=== PATIENT | male | born 1970 | race Caucasian/White ===

== ENCOUNTER 2019-06-30 17:31 | Inpatient (IN) | payer OTHER ==
[~2019-06-30] VITALS: Ht 185.4 cm; Wt 87.5 kg
[~2019-06-30 17:31] MED LIST: AUGMENTIN 875875 MG PO; CELEXA 10 MG TA10 M1 PO; FLEXERIL PO; HUMIRA PSO40 MG/0.8 IM; HYDROCODON-ACE1 EACH PO; IBUPROFEN 800800 MG PO; LORAZEPAM 1 MG T1 M1 PO; PRINIVIL20 MG PO
[2019-06-30 17:36] VITALS: BP 152/111
[2019-06-30 18:06] LABS: ABSOLUTE BASOPHILS 0.1 thou/uL (0.0-0.2); ABSOLUTE LYMPHOCYTES 0.7 thou/uL (0.8-5.3); ABSOLUTE NEUTROPHILS 6.8 thou/uL (1.6-8.1); BASOPHILS 0.9 %; EOSINOPHILS 0.1 %; HEMATOCRIT 41.5 % (42.0-52.0); HEMOGLOBIN 14.6 gm/dL (14.0-18.0); MCH 35.8 pg (26.0-34.0); MCHC 35.2 g/dL (28.0-37.0); MCV 101.7 fL (80.0-100.0); MONOCYTES 11.5 %; MPV 10.1 fl. (7.2-11.1); NUCLEATED RBCS 0 /100WBC; PLATELET COUNT* 131 thou/uL (150-400); POLYS 79.5 %; RBC 4.08 mil/uL (4.50-6.00); RDW-CV 12.6 % (10.5-14.5); WBC 8.6 thou/uL (4.0-11.0)
[2019-06-30 18:14] LABS: CALCIUM 10.8 mg/dL (8.5-10.1); CREATININE 1.7 mg/dL (0.6-1.3); POTASSIUM 3.2 mmol/L (3.5-5.1)
[2019-06-30 18:23] LABS: ALCOHOL 26 mg/dL (<10)
[2019-06-30 18:25] LABS: ACETAMINOPHEN < 2 ug/mL (10-30); SALICYLATE < 2.8 mg/dL (2.8-20.0)
[2019-06-30 18:31] LABS: ALBUMIN 4.8 g/dL (3.4-5.0); TOTAL BILIRUBIN 1.6 mg/dL (<0.1-1.0); TOTAL PROTEIN 8.6 g/dL (6.4-8.2)
[2019-06-30 18:49] LABS: APTT 33.3 Seconds (25.0-31.3); INR 0.9; PROTIME 9.7 Seconds (9.20-11.50)
[2019-06-30 19:36] VITALS: BP 137/93
[2019-06-30 19:56] VITALS: BP 123/89
[2019-06-30 21:03] VITALS: BP 127/89
[2019-06-30 21:18] LABS: AMMONIA < 10 umol/L (11-32); MAGNESIUM 2.1 mg/dL (1.8-2.4); PHOSPHORUS* 3.2 mg/dL (2.5-4.9)
--- NOTE | 2019-06-30 22:42 | NUR ---
PT. BECAME EXTREMELY AGITATED/ANXIOUS/IMPULSIVE. CIWA 43. DR. VILA NOTIFIED, ORDERS RECEIVED. PT. PLACED IN 4 POINT SOFT RESTRAINTS DUE TO HITTING/PULLING ON LINES/AND ATTEMPTING TO GET OUT OF BED. ATTEMPTS TO REDIRECT AND REORIENT PT. UNSUCCESSFUL. PT. VERY CONFUSED/SEVERE HALLUCINATIONS. THIS NURSE ABLE TO KEEP EYES ON PT. AT ALL TIMES. WILL CONTINUE TO MONITOR.
[2019-06-30 23:20] VITALS: BP 127/78
[2019-06-30 23:32] VITALS: BP 141/105
[2019-07-01] VITALS (41 sets, daily range): BP systolic 90–157; BP diastolic 39–87
--- NOTE | 2019-07-01 00:01 | NUR ---
CARDIOLOGY PAGED X2 REGARDING EXTREME TACHYCARDIA. CARDIZEM GTT MAXED AT 20MG/HR. ATIVAN GTT AT 15MG/HR. HEART RATE REMAINS 150-200. AWAITING CALL BACK.
[2019-07-01 06:04] LABS: HEMATOCRIT 37.5 % (42.0-52.0); HEMOGLOBIN 12.8 gm/dL (14.0-18.0); MCH 35.4 pg (26.0-34.0); MCHC 34.2 g/dL (28.0-37.0); MCV 103.4 fL (80.0-100.0); MPV 10.5 fl. (7.2-11.1); RBC 3.62 mil/uL (4.50-6.00); RDW-CV 12.8 % (10.5-14.5); WBC 5.8 thou/uL (4.0-11.0)
[2019-07-01 06:17] LABS: ALBUMIN 3.2 g/dL (3.4-5.0); CREATININE 0.9 mg/dL (0.6-1.3); MAGNESIUM 2.1 mg/dL (1.8-2.4); POTASSIUM 3.5 mmol/L (3.5-5.1); TOTAL BILIRUBIN 1.1 mg/dL (<0.1-1.0); TOTAL PROTEIN 6.3 g/dL (6.4-8.2)
[2019-07-01 08:38] LABS: AMMONIA 28 umol/L (11-32); TROPONIN-I LEVEL <0.06 ng/mL (<0.06)
[2019-07-01 09:23] LABS: BE 1.5 mmol/L (-2 to +3); PCO2 42.1 mmHg (35.0-45.0); PO2 102.6 mmHg (75.0-100.0); pH 7.413 (7.340-7.450)
--- NOTE | 2019-07-01 10:54 | NUR ---
SPOKE WITH PT AT BEDSIDE. THEY ARE SINCE SEP 2018, BUT NOT . STATES PATIENT RECOGNIZED HE WAS BEGINNING TO HALLUCINATE AND REQUESTED SHE ASSIST IN GETTING HIM SEEN. SHE IS EXPRESSING HOPEFULLY, PT WILL BE AMENABLE TO SUPPORT SERVICES FOR HIS ETOH ABUSE/DISEASE WHEN HE IMPROVES AND IS ABLE TO DISCUSS HIS PLAN FOR HIS CARE DECISIONS. SHE HAS NO QUESTIONS AT THIS TIME; STATES SHE PLANS TO SPEAK WITH HER THERAPIST LATER TODAY FOR HER SUPPORT IN NOT ENABLING THE PATIENT, WHILE WANTING TO SUPPORT HIM/ADVOCATE FOR HIM. NOTICABLY EMOTIONAL, AND KNOWLEDGEABLE. WILL REMAIN AVAILABLE TO ASSIST PT STABILIZES WITH ETOH WITHDRAWAL MANAGEMENT.
[2019-07-01 13:02] LABS: AMP/METHAMP ND (Negative); BARBITURATES ND (Negative); BENZODIAZEPINES ND (Negative); URINE CLARITY ND; URINE COLOR ND
[2019-07-01 13:03] LABS: COCAINE ND (Negative); METHADONE ND (Negative); URINE PROTEIN ND (Negative); URINE SPECIFIC GRAVITY ND (1.005-1.030)
[2019-07-01 13:04] LABS: ACETEST (KETONE CONFIRMATORY) ND (Negative); ICTOTEST (BILI CONFIRMATORY) ND (Negative); OPIATES ND (Negative); PCP ND (Negative); URINE BILIRUBIN ND (Negative); URINE GLUCOSE-RANDOM ND (Negative); URINE KETONES ND (Negative); URINE REDUCING SUBSTANCE ND % (Negative)
[2019-07-01 13:05] LABS: THC ND (Negative); URINE BLOOD ND (Negative); URINE LEUKOCYTES-REFLEX ND (Negative); URINE NITRITE-REFLEX ND (Negative); URINE UROBILINOGEN ND E.U./dl (0.2-1.0)
[2019-07-01 14:39] LABS: URINE BILIRUBIN NEGATIVE (Negative); URINE BLOOD 1+ (Negative); URINE CLARITY CLEAR; URINE COLOR YELLOW; URINE GLUCOSE-RANDOM NEGATIVE (Negative); URINE KETONES NEGATIVE (Negative); URINE LEUKOCYTES-REFLEX NEGATIVE (Negative); URINE NITRITE-REFLEX NEGATIVE (Negative); URINE PROTEIN NEGATIVE (Negative); URINE UROBILINOGEN 0.2 E.U./dl (0.2-1.0)
[2019-07-01 14:48] LABS: CASTS None Seen /LPF (None Seen); URINE RBC 0-2 Rare /HPF (0-2)
[2019-07-01 14:49] LABS: BACTERIA-REFLEX None Seen /HPF (None Seen); CRYSTALS None Seen /LPF (None Seen); MUCUS None Seen strn/LPF (None Seen); URINE WBC-REFLEX None Seen /HPF (0-5)
[2019-07-01 14:50] LABS: SQUAMOUS NONE SEEN /LPF (0-3)
[2019-07-01 16:49] LABS: AMP/METHAMP Negative (Negative); BARBITURATES Negative (Negative); BENZODIAZEPINES Negative (Negative); COCAINE Negative (Negative); METHADONE Negative (Negative); OPIATES Negative (Negative); PCP Negative (Negative); THC Negative (Negative)
--- NOTE | 2019-07-01 16:59 | 2DMMODE ---
[place] [address] 2 D/M-MODE ECHOCARDIOGRAM Name: CAL GUERIN Room: [address] IN [facility]#: [id number] Admission: 06/30/19 Attend Phys: Magda Kam, Discharge: Date of : 72 Date of Service: 07/01/19 1659 Report #: [id number] THIS REPORT FOR: //name// APPROVED REPORT Study performed: 07/01/2019 09:44:22 EXAM: Comprehensive 2D, Doppler, and color-flow Echocardiogram Patient Location: In-Patient Room #: [facility] Status: routine BSA: 2.17 HR: 79 bpm BP: 126/79 mmHg Rhythm: Atrial Fibrillation Other Information Study Quality: Good Indications Atrial Fibrillation 2D Dimensions IVSd: 11.54 (7-11mm) LVOT Diam: 21.87 (18-24mm) LVDd: 47.19 mm PWd: 11.19 (7-11mm) Ascending Ao: 34.87 (22-36mm) LVDs: 27.08 (25-40mm) Aortic Root: 35.35 mm Volumes Left Atrial Volume (Systole) LA ESV Index: 19.60 mL/m2 Aortic Valve AoV Peak Bro.: 1.32 m/s AO Peak Gr.: 6.97 mmHg LVOT Max P.00 mmHg AO Mean Gr.: 4.14 mmHg LVOT Mean P.77 mmHg LVOT Max V: 1.12 m/s AO V2 VTI: 20.89 cm LVOT Mean V: 0.77 m/s ALFRED (VTI): 3.58 cm2 LVOT V1 VTI: 19.93 cm TDI Lateral E' Bro.: 0.13 m/[place] [address] 2 D/M-MODE ECHOCARDIOGRAM Name: CAL GUERIN Room: [address] IN .R.#: [id number] Admission: 06/30/19 Attend Phys: Magda Kam, Discharge: Date of : 72 Date of Service: 07/01/19 1659 Report #: [id number] PV Peak Bro.: 0.92 m/s PV Peak Gr.: 3.36 mmHg Left Ventricle The left ventricle is normal size. There is normal LV segmental wall motion. Borderline concentric left ventricular hypertrophy. Left ventricular systolic function is normal. The left ventricular ejection fraction is within the normal range. LVEF is 60-65%. This study is not technically sufficient to allow evaluation of the LV diastolic function due to atrial fibrillation. Right Ventricle The right ventricle is normal size. The right ventricular systolic function is normal. Atria The left atrium size is normal. The right atrium size is normal. Aortic Valve The aortic valve is normal in structure. No aortic regurgitation is present. There is no aortic valvular stenosis. Mitral Valve The mitral valve is normal in structure. Trace mitral regurgitation. No evidence of mitral valve stenosis. Tricuspid Valve The tricuspid valve is normal in structure. Trace tricuspid regurgitation. Unable to assess PA pressure. Pulmonic Valve The pulmonary valve is normal in structure. There is no pulmonic valvular regurgitation. Great Vessels The aortic root is normal in size. IVC is normal in size and collapses >50% with inspiration. Pericardium There is no pericardial effusion. <Conclusion> The left ventricle is normal size. Borderline concentric left ventricular hypertrophy. Left ventricular systolic function is normal. The left ventricular ejection fraction [place] [address] 2 D/M-MODE ECHOCARDIOGRAM Name: CAL GUERIN Room: [address] IN [facility].#: [id number] Admission: 06/30/19 Attend Phys: Magda Kam, Discharge: Date of : 72 Date of Service: 07/01/19 1659 Report #: [id number]. LVEF is 60-65%. This study is not technically sufficient to allow evaluation of the LV diastolic function due to atrial fibrillation. The right ventricle is normal size. The left atrium size is normal. The aortic valve is normal in structure. The mitral valve is normal in structure. The tricuspid valve is normal in structure. IVC is normal in size and collapses >50% with inspiration. There is no pericardial effusion. There is normal LV segmental wall motion. <ELECTRONICALLY SIGNED> By: Julien Melo MD, FACC 07/01/191658 58 58 Julien Melo MD, FACC /INF
--- NOTE | 2019-07-01 17:15 | EKG ---
[place] [address] ELECTROCARDIOGRAM REPORT Name: PANCHITO GUERINSAGAR [place] Room: [address] ADM IN M.R.#: [id number] Admission: 06/30/19 Attend Phys: Magda Kam MD Discharge: Date of : 72 Report #: [id number] THIS REPORT FOR: //name// [facility] ED Test Date: 2019-06-30 Test Time: 18:03:14 Pat Name: CAL GUERIN Department: Room: [facility] Gender: M Scaffold Erector: MS : 1970 Requested By: Joaquin Reza Order Number: [id number] MD: Armando Arreguin Measurements Intervals [place] Rate: 96 P: 33 ID: 138 QRS: -22 QRSD: 82 T: 16 QT: 330 QTc: 417 Interpretive Statements Sinus rhythm Abnormal R-wave progression, early transition Baseline wander in lead(s) I,II,aVR Compared to ECG 06/06/2016 07:51:55 Electronically Signed On 07-01-2019 17:15:32 TONAL REGULATOR by Armando Arreguin [email or web address] <ELECTRONICALLY SIGNED> By: Armando Arreguin MD, [facility] 07/01/19 1715 1803 1803 Armando Arreguin MD, [facility] /EPI
--- NOTE | 2019-07-01 17:17 | EKG ---
[place] [address] ELECTROCARDIOGRAM REPORT Name: CAL GUERIN Room: [address] ADM IN M.R.#: [id number] Admission: 06/30/19 Attend Phys: Magda Kam MD Discharge: Date of : 72 Report #: [id number] THIS REPORT FOR: //name// [facility] Test Date: 2019-06-30 Test Time: 21:10:39 Pat Name: CAL GUERIN Department: Room: [address] Gender: M Logistics Planning Engineer: MAGDALENO : 1970 Requested By: Magda Kam Order Number: [id number] Valentine MD: Armando Arreguin Measurements Intervals [place] Rate: 178 P: GA: QRS: -18 QRSD: 79 T: 137 QT: 263 QTc: 453 Interpretive Statements Atrial fibrillation with rapid V-rate Ventricular premature complex Borderline left axis deviation Abnormal R-wave progression, early transition Repolarization abnormality, prob rate related Baseline wander in lead(s) V1 Compared to ECG 06/06/2016 07:51:55 Ventricular premature complex(es) now present Early repolarization now present Sinus rhythm no longer present Electronically Signed On 07-01-2019 17:17:36 BLEACHER KRAFT PULP by Armando Arreguin [email or web address] <ELECTRONICALLY SIGNED> By: Armando Arreguin MD, FACC 07/01/19 1717 09 09 Armando Arreguin MD, FACC /EPI
--- NOTE | 2019-07-01 18:45 | NUR ---
PT RESPONDS TO VERBAL COMMANS, ON ATIVAN DRIP AT 8 MG/HR. NOT AGITATED BUT TRY PULLING ON LINES WHEN AWAKE. CARDIZEM DRIP AT 10 MG/HR. EXTERNAL MALE CATH PLACED FOR INCONTINENCE. FLUIDS AND BANANA BAG RUNNING. A FIB ON THE MONITOR, RATE CONTROLLED. EX AT THE BEDSIDE FOR FEW HOURS.
[2019-07-02] VITALS (37 sets, daily range): BP systolic 119–165; BP diastolic 56–94
[2019-07-02 05:03] LABS: HEMATOCRIT 41.5 % (42.0-52.0); MCH 35.1 pg (26.0-34.0); MCHC 33.8 g/dL (28.0-37.0); MCV 103.7 fL (80.0-100.0); MPV 10.1 fl. (7.2-11.1); RDW-CV 12.9 % (10.5-14.5); WBC 9.1 thou/uL (4.0-11.0)
[2019-07-02 05:20] LABS: ALBUMIN 3.4 g/dL (3.4-5.0); ALKALINE PHOSPHATASE 56 U/L (46-116); ANION GAP 11 mmol/L (7-16); BUN 4 mg/dL (7-18); CALCIUM 8.8 mg/dL (8.5-10.1); CHLORIDE 105 mmol/L (98-107); CO2 24 mmol/L (21-32); CREATININE 0.8 mg/dL (0.6-1.3); GLUCOSE 108 mg/dL (70-99); PHOSPHORUS* 2.2 mg/dL (2.5-4.9); POTASSIUM 3.4 mmol/L (3.5-5.1); SGOT 124 U/L (15-37); SGPT 129 U/L (30-65); SODIUM 140 mmol/L (136-145); TOTAL PROTEIN 7.1 g/dL (6.4-8.2); TROPONIN-I LEVEL <0.06 ng/mL (<0.06)
--- NOTE | 2019-07-02 06:47 | NUR ---
ASSUMED CARE AT 1900H, ON NC AT 2LPM AND TOLERATED WITH EDISODE OF TACHYPNEA. NO DISTRESS BUT PATIENT STILL RESTLESS WHEN AWAKE,PRN MEDS GIVEN.ATIVAN INCREASE TO 13MG/HR.LATEST CIWA 17.EX CALLED AND SAID PATIENT STILL THE SAME, AND ACCORDING TO HER SHE WILL COME BEFORE 8AM TO TALK TO THE DOCTOR.CONTINUE MONITORING AND TOWARDS GOAL.
--- NOTE | 2019-07-02 12:05 | NUR ---
ICU rounds: Pt alert to name, but continues to hallucinate. Pt started on Cardizem gtt for new Afib w/RVR. Start PPN. Has external padilla. Has pink eye. 2L oxygen. No central line. CM following.
--- NOTE | 2019-07-02 17:36 | NUR ---
VSS.SEASONAL DRIVER IN PLACE WITH NO CHANGES.PT REMAINS ON 2L O2 NC.IV PATENT WITH CARDIZEM AND ATIVAN DRIP INFUSING PER TITRATION ORDERS.NO C/O PAIN.PT REMAINS NPO PER ORDERS WITH FREQUENT MOUTH CARE GIVEN.PPN INFUSING PER ORDERS.Q2 HOUR POSITION CHANGES COMPLETED.CIWA ASSESSMENTS COMPLETED.BATH GIVEN.PT IS RESTLESS WITH HALLUCINATIONS AT TIMES.PT EASILY REDIRECTED BY NURSE.HOURLY ROUNDING COMPLETED.WILL CONTINUE TO MONITOR FOR DURATION OF SHIFT.
[2019-07-03] VITALS (24 sets, daily range): BP systolic 111–161; BP diastolic 57–120
[2019-07-03 05:17] LABS: HEMATOCRIT 39.4 % (42.0-52.0); HEMOGLOBIN 13.6 gm/dL (14.0-18.0); MCH 35.9 pg (26.0-34.0); MCHC 34.6 g/dL (28.0-37.0); MCV 103.9 fL (80.0-100.0); MPV 9.7 fl. (7.2-11.1); RBC 3.79 mil/uL (4.50-6.00); RDW-CV 12.5 % (10.5-14.5); WBC 7.8 thou/uL (4.0-11.0)
[2019-07-03 05:29] LABS: CREATININE 0.8 mg/dL (0.6-1.3); MAGNESIUM 1.8 mg/dL (1.8-2.4); TOTAL BILIRUBIN 0.9 mg/dL (<0.1-1.0); TOTAL PROTEIN 6.9 g/dL (6.4-8.2)
[2019-07-03 05:30] LABS: POTASSIUM 2.9 mmol/L (3.5-5.1)
--- NOTE | 2019-07-03 11:08 | NUR ---
ICU rounds: CIWA 20. Replacing K. Continue PPN. External padilla in place. ST to see today. Afib, continue cardizem gtt. Continue Ativan gtt. Spoke with in [facility], she confirmed that they are , but will continue to be involved in Pt's life. has been in contact with a treatment center called [facility], they will follow along with Pt and come to assess Pt once more medically stable. has already provided [facility] with insurance info, she plans to call them today to determine admissions process. Following.
--- NOTE | 2019-07-03 17:44 | NUR ---
VSS.TEAM PSYCHOLOGIST IN PLACE WITH NO CHANGES.NEW IV INSERTED IN THE RIGHT FOREARM.CARDIZEM AND ATIVAN DRIP INFUSING PER TITRATION ORDERS.POTASSIUM REPLACED.NO C/O PAIN.CIWA ASSESSMENT COMPLETED.EXTERNAL URBAN SECURE AND PATENT.SPEECH THERAPY SAW PT AND OK HIM FOR REGULAR WITH THIN LIQUIDS.PT TOLERATING DIET.PT AND FAMILY INFORMED OF PLAN OF CARE AND COMMUNICATES UNDERSTANDING.ABDOMINAL ULTRASOUND COMPLETED.HOURLY ROUNDING COMPLETED.CALL LIGHT AND FALL PRECAUTIONS IN PLACE.WILL CONTINUE TO MONITOR FOR DURATION OF SHIFT.
--- NOTE | 2019-07-03 23:28 | NUR ---
PT. VERY AGITATED AT THIS TIME, YELLING OUT, NOT REDIRECTABLE. ABLE TO STATE HE IS AT [facility]. ORIENTED TO PERSON AND PLACE, BUT EXTREMELY AGITATED AND FRUSTRATED. NOELLE TO BE GIVEN.
[2019-07-04] VITALS (29 sets, daily range): BP systolic 83–174; BP diastolic 38–101
[2019-07-04 04:49] LABS: HEMATOCRIT 43.2 % (42.0-52.0); HEMOGLOBIN 14.9 gm/dL (14.0-18.0); MCH 35.1 pg (26.0-34.0); MCHC 34.4 g/dL (28.0-37.0); MCV 102.1 fL (80.0-100.0); MPV 9.1 fl. (7.2-11.1); RBC 4.24 mil/uL (4.50-6.00); RDW-CV 12.6 % (10.5-14.5); WBC 7.7 thou/uL (4.0-11.0)
[2019-07-04 05:00] LABS: CALCIUM 9.7 mg/dL (8.5-10.1); CREATININE 0.8 mg/dL (0.6-1.3); POTASSIUM 4.1 mmol/L (3.5-5.1); TOTAL BILIRUBIN 0.8 mg/dL (<0.1-1.0); TOTAL PROTEIN 7.3 g/dL (6.4-8.2)
--- NOTE | 2019-07-04 05:42 | NUR ---
PT. CIWA HIGH 23 THIS SHIFT. REMAINS IN 4 POINT SOFT RESTRAINTS. ATTEMPTED TO UNTIE LEGS, PT. IMMEDIATELY ATTEMPTED TO CLIMB OUT OF BED AND USED HIS FOOT TO PULL OFF EXTERNAL CATHETER. WAS ORIENTED TO PERSON AND PLACE AT 0000 ASSESSMENT. STATED HE "NEEDS HIS SHOES AND HAS TO GO TO WORK TODAY". PPN NOT RUNNING AT THIS TIME-MEDICATION NOT AVAILABLE. ATIVAN GTT MAXED AT 15MG/HR. WILL CONTINUE TO MONITOR.
--- NOTE | 2019-07-04 10:55 | NUR ---
ICU rounds: here this AM, able to get Pt to eat breakfast. CIWA 23. 2pt restraints. Continues to hallucinate. Oriented to self only.
[2019-07-04 17:11] LABS: HEPATITIS B SURFACE AG Negative (Negative)
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
--- NOTE | 2019-07-04 19:53 | NUR ---
RECEIVED REPORT AND ASSUMED CARE AT 1900. BP LOW, OTHERWISE VSS. ICU MONITORING IN PLACE. ASSESSMENT COMPLETED CHARTED. CIWA =0 R/T SEDATION, UNABLE TO ASSESS. BED LOCKED IN LOWEST POSITION, BED ALARM ON. PT BEDREST, ON RA.
[2019-07-05] VITALS (33 sets, daily range): BP systolic 71–123; BP diastolic 45–85
--- NOTE | 2019-07-05 18:41 | NUR ---
THIS CIVIL ENGINEERING ASSISTANT ASSUMED CARE OF PT AFTER RECEIVING SHIFT REPORT AT 0700. PT HAS PROGRESSED TOWARDS GOALS DURING SHIFT CIWA Q4 COMPLETED LAST AT 1600. PT IS MODERATELY SEDATED AND UNABLE TO ASSESS IF PT IS HAVING TACTICLE AUDITORY HALLUCINATIONS OR A HEADACHE. ATIVAN 1MG ADMINISTERED AT NOON DO TO AGITATION PT HAS BEEN SLEEPING. PT CONSUMED BREAKFAST AND 30% OF LUNCH NO DINNER CONSUMED DO TO SLEEPING. PLACED IV IN RIGHT HAND. BLOOD PRESSURE HAVE BEEN SOFT 80/[address] VILA AND CARDIO DOCTOR ORDERS TO D/C CARDIZEM AND DECREASE METOPROLOL DOSE FROM 5MG TO 2.5. DR NEUMANN ORDERED FLUID BOLUS AT 1800 TO INCREASE B/P IN ROOM THROUGHTOUT DAY
[2019-07-06] VITALS (17 sets, daily range): BP systolic 97–162; BP diastolic 30–101
[2019-07-06 04:20] LABS: HEMATOCRIT 43.3 % (42.0-52.0); HEMOGLOBIN 14.9 gm/dL (14.0-18.0); MCH 34.9 pg (26.0-34.0); MCHC 34.5 g/dL (28.0-37.0); MCV 101.2 fL (80.0-100.0); MPV 8.9 fl. (7.2-11.1); RBC 4.28 mil/uL (4.50-6.00); RDW-CV 12.2 % (10.5-14.5); WBC 6.5 thou/uL (4.0-11.0)
--- NOTE | 2019-07-06 04:39 | NUR ---
RECIEVED REPORT AND ASSUMED CARE AT 1900. BP SOFT, OTHERWISE VSS. ICU MONITORING IN PLACE. PT NOT WAKING UP TO ANSWER ORIENTATION QUESTIONS AT BEGINNING OF THE SHIFT.ASSESSMENT COMPLETED CHARTED. BED LOCKED IN LOWEST POSITION, CALL LIGHT WITHIN REACH, BED ALARM ON. PT BEDREST, ON RA. ADELAWA COMPLETED 1999=6 0000=3 0415=2.
[2019-07-06 04:43] LABS: ALBUMIN 2.7 g/dL (3.4-5.0); CALCIUM 9.5 mg/dL (8.5-10.1); CREATININE 0.8 mg/dL (0.6-1.3); POTASSIUM 4.6 mmol/L (3.5-5.1); TOTAL BILIRUBIN 0.6 mg/dL (<0.1-1.0); TOTAL PROTEIN 6.9 g/dL (6.4-8.2)
--- NOTE | 2019-07-06 10:11 | NUR ---
THIS AUTOMATED CUTTING MACHINE OPERATOR ASSUMED CARE OF PT AFTER RECEIVING SHIFT REPORT AT 0700. PT PROGRESSED TOWARD GOALS AND WAS DOWNGRADED TO THE TELEY FLOOR ROOM 204. X-RAY R SHOULDER THIS MORNING DO TO C/O PAIN WAITING RESULTS. ALL WOUND DRESSING CLEANED AND CHANGED AT 0900 INTACT. PT CONSUMED ALL OF BREAKFAST ACCU CHECK 137 NO TREATMENT GIVEN PT BELONGINGS PACKED AND TRANSFERRED AT 1000
--- NOTE | 2019-07-06 18:57 | NUR ---
THIS GRAPHICS COORDINATOR ASSUMED CARE OF PT AFTER RECEIVING SHIFT REPORT AT 0700. PT DID PROGRESS TOWARD GOALS TODAY PRECEXDEX GTT TURNED OFF AT 0630 PT IS A&O GETS CONFUSED AT TIMES PT WILL BE TALKING THEN START TALKING ABOUT SOMETHING COMPLETELY DIFFERENT CIWA SCORED 3 PT WAS EMOTIONAL AND ANXIOUS PO ATIVAN GIVEN RESTRAINTS REMOVED R AC INFLITRATED REMOVED IN ROOM THROUGHOUT THE DAY PPN RUNNING AT 80ML/HR IN ROOM RESTING
[2019-07-07] VITALS (17 sets, daily range): BP systolic 118–160; BP diastolic 74–106
--- NOTE | 2019-07-07 04:46 | NUR ---
PT HAS BEEN IMPULSIVE AND CONFUSED CONTINUOUS TRYING TO GET OUT OF BED. PT HAS PULLED OUT HIS IV. MULTIPLE ATTEMPTS TO GET IV ACCESS BUT UNSUCCESSFUL. PT HAS BEEN ABLE TO TOLERATE REGULAR DIET AND DRINK WATER WITH ANY PROBLEMS. PT HAS PROGRESSIVELY TRYING TO GET OUT OF BED EVERY 2-5 MINS. SITTER IS NOW AT BEDSIDE FOR PT SAFTELY. CONTINUE TO MONITOR
--- NOTE | 2019-07-07 10:21 | EKG ---
[place] [address] ELECTROCARDIOGRAM REPORT Name: APOORVAPANCHITOSAGAR [place] Room: [address] ADM IN M.R.#: [id number] Admission: 06/30/19 Attend Phys: Magda Kam MD Discharge: Date of : 72 Report #: [id number] THIS REPORT FOR: //name// [facility] Test Date: 2019-07-06 Test Time: 07:57:55 Pat Name: CAL GUERIN Department: Room: [address] Gender: M Oxidation Operator: CT : 1970 Requested By: Citlaly Rivers Order Number: [id number] Valentine MD: Nicola Nunez Measurements Intervals [place] Rate: 91 P: 51 NV: 142 QRS: -27 QRSD: 85 T: 40 QT: 304 QTc: 374 Interpretive Statements Sinus rhythm Probable left atrial enlargement Borderline left axis deviation Abnormal R-wave progression, early transition Compared to ECG 06/30/2019 21:10:39 Atrial fibrillation no longer present Electronically Signed On 07-07-2019 10:20:57 AIRLINE LOUNGE RECEPTIONIST by Nicola Nunez [email or web address] <ELECTRONICALLY SIGNED> By: Nicola Nunez MD, [facility] 07/07/19 1020 0757 0757 Nicola Nunez MD, [facility] /EPI
--- NOTE | 2019-07-07 13:15 | NUR ---
ICU rounds: Tele psych consult today. Last night Pt impulsive and agitated. PT working with Pt. Pt continues to hallucinate. Not eating, continue PPN. Possible tele status.
--- NOTE | 2019-07-07 18:21 | NUR ---
PT DISORIENTED TO PLACE AND TIME, TRIES TO GET OUT OF BED AND ROOM SEVERAL TIMES, FREQUENT REORIENTATION GIVEN. NEW IV LINES STARTED. TELE PSYCH CONSULT DONE, ORDERS RECEIVED. VSS. HALDOL AND ATIVAN GIVEN ONCE FOR AGITATION. ATE 50% OF HIS LUNCH.
[2019-07-08 01:18] VITALS: BP 124/80
--- NOTE | 2019-07-08 04:08 | NUR ---
ASSUMED CARE AT 1900H, ON RA AND TOLERATED.PT STILL CONFUSED AND WANTED TO GO OUT BUT SOMETIMES HE SEEMS KNOWS WHAT'S HAPPENING TO HIM.WHEN AWAKE HE ALWAYS STOOD UP AND WALKED TOWARDS THE DOOR.NOTED WITH SLIGHTLY UNSTEADY GAIT.ORIENT PT ALL THE TIME AND LET HER TALK TALKED TO HER EX- VIA PHONE.CONTINUE MONITORING AND TOWARDS GOAL.KEEP PT SAFE AND BED ALRM ON.
[2019-07-08 09:01] VITALS: BP 107/71
[2019-07-08] MEDS ORDERED: LANOXIN 0.25M0.25 M1 PO (10:05)
[2019-07-08] MEDS ORDERED: LOPRESSOR25 PO (10:06)
[2019-07-08] MEDS ORDERED: ZYPREXA 5 MG TAB5 M1 PO (10:06)
[2019-07-08 10:40] VITALS: BP 107/71
--- NOTE | 2019-07-08 10:41 | NUR ---
Pt to dc today. Rep from [facility] [employer] to come between 1030-11 to assess Pt for inpt treatment, Pt in agreement at this time. in room.
--- NOTE | 2019-07-08 12:35 | NUR ---
UNABLE TO TREAT PT THIS DATE. D/C AT THIS TIME OUT OF DOOR WITH
--- NOTE | 2019-07-08 12:51 | NUR ---
PT A&O x3. IV LINES AND RAJNI'S CATH DC'd. POLICE OR [employer] PARK OFFICER FROM THE REHAB CENTER APPROVED HIM. DISCHARGE EDUCATION GIVEN. PT UNDERSTANDS THE NEED FOR HIM TO GO TO THE REHAB AND READY TO ADMIT VOLUNTARITLY. LEFT THE UNIT WITH HIS WIFT AT 1230 WITH ALL HIS BELONGINGS.
== END 2019-07-08 12:35 | disposition home or self-care (01) | DRG 896 ==
LOC: M.ERS 17:31 → M.ICU 18:37 → M.TBA-ER 18:37 → M.ICU 19:01
PROVIDERS: Emergency Medicine Emergency Medical Services; Family Medicine; ADMIT Internal Medicine
DX: F10.239 Alcohol dependence with withdrawal, unspecified (principal); N17.0 Acute kidney failure with tubular necrosis; G92 Toxic encephalopathy; J98.11 Atelectasis; E44.0 Moderate protein-calorie malnutrition; F32.9 Major depressive disorder, single episode, unspecified; F41.9 Anxiety disorder, unspecified; I10 Essential (primary) hypertension; H10.9 Unspecified conjunctivitis; I48.0 Paroxysmal atrial fibrillation; E87.6 Hypokalemia; D75.89 Other specified diseases of blood and blood-forming organs; Z88.8 Allergy status to other drugs, medicaments and biological substances; Z68.25 Body mass index [BMI] 25.0-25.9, adult; Z28.21 Immunization not carried out because of patient refusal; Z79.899 Other long term (current) drug therapy

== ENCOUNTER 2021-05-08 14:58 | Inpatient (IN) | payer OTHER ==
[~2021-05-08] VITALS: Ht 185.4 cm; Wt 88.0 kg
[~2021-05-08 14:58] MED LIST changes: +LANOXIN 0.25M0.25 M1 PO; +LOPRESSOR25 PO; +ZYPREXA 5 MG TAB5 M1 PO
[2021-05-08 15:11] VITALS: BP 188/111
[2021-05-08] MEDS ORDERED: DESYREL150 MG PO (15:20)
[2021-05-08] MEDS ORDERED: CELEXA 10 MG TA10 M1 PO (15:20)
[2021-05-08 15:43] LABS: HEMATOCRIT 41.7 % (42.0-52.0); HEMOGLOBIN 14.1 gm/dL (14.0-18.0); MCH 34.6 pg (26.0-34.0); MCHC 33.7 g/dL (28.0-37.0); MCV 102.9 fL (80.0-100.0); MPV 8.2 fl. (7.2-11.1); NUCLEATED RBCS 0 /100WBC; PLATELET COUNT* 99 thou/uL (150-400); RBC 4.06 mil/uL (4.50-6.00); RDW-CV 14.9 % (10.5-14.5)
[2021-05-08 15:52] LABS: CALCIUM 9.6 mg/dL (8.5-10.1); POTASSIUM 3.8 mmol/L (3.5-5.1)
[2021-05-08 15:55] LABS: APTT 28.9 Seconds (25.0-31.3); PROTIME 10.3 Seconds (9.20-11.50)
[2021-05-08 15:56] LABS: ALBUMIN 4.6 g/dL (3.4-5.0); MAGNESIUM 1.5 mg/dL (1.8-2.4); PHOSPHORUS* 4.5 mg/dL (2.5-4.9); TOTAL BILIRUBIN 1.7 mg/dL (<0.1-1.0); TOTAL PROTEIN 7.8 g/dL (6.4-8.2)
[2021-05-08 15:58] LABS: ALCOHOL < 10 mg/dL (<10)
[2021-05-08 15:59] LABS: ACETAMINOPHEN < 2 ug/mL (10-30); SALICYLATE < 2.8 mg/dL (2.8-20.0)
[2021-05-08 16:17] LABS: ABSOLUTE BASOPHILS 0.1 thou/uL (0.0-0.2); ABSOLUTE LYMPHOCYTES 0.1 thou/uL (0.8-5.3); ABSOLUTE MONOCYTES 0.5 thou/uL (0.0-1.2); ABSOLUTE NEUTROPHILS 6.3 thou/uL (1.6-8.1); LARGE PLATELETS OCCASIONAL; MACROCYTES Occasional; PLATELET ESTIMATE DECREASED
[2021-05-08 19:53] VITALS: BP 149/86
[2021-05-09] VITALS: BP 142/89
[2021-05-09 01:05] LABS: URINE BLOOD NEGATIVE (Negative); URINE CLARITY CLEAR; URINE COLOR YELLOW; URINE GLUCOSE-RANDOM NEGATIVE (Negative); URINE LEUKOCYTES-REFLEX NEGATIVE (Negative); URINE NITRITE-REFLEX NEGATIVE (Negative); URINE PROTEIN TRACE (Negative); URINE SPECIFIC GRAVITY 1.015 (1.005-1.030)
[2021-05-09 01:07] LABS: URINE BILIRUBIN 1+ (Negative); URINE KETONES 3+ (Negative)
[2021-05-09 01:10] LABS: ACETEST (KETONE CONFIRMATORY) Large (Negative); ICTOTEST (BILI CONFIRMATORY) Positive (Negative)
[2021-05-09 01:11] LABS: AMP/METHAMP Negative (Negative); BARBITURATES Negative (Negative); BENZODIAZEPINES Negative (Negative); COCAINE Negative (Negative); METHADONE Negative (Negative); OPIATES Negative (Negative); PCP Negative (Negative); THC Negative (Negative)
--- NOTE | 2021-05-09 02:16 | NUR ---
PT IS TRACING SR/ST ON ASSEMBLER FOR PULLER OVER HAND. PT CIWA SCORE IS 28. MEDICATIONS ADMINISTERED PRESCRIBED. PT IS IMPULSIVE AND CONTINUOUSLY REMOVES ASSEMBLER FOR PULLER OVER HAND LEADS. PT STATES, "I DON'T NEED THESE TODAY. TAKE THEM AWAY." ASSEMBLER FOR PULLER OVER HAND NOT TRACING AT THIS TIME D/T PT REFUSAL.
[2021-05-09 04:00] VITALS: BP 128/82
--- NOTE | 2021-05-09 05:11 | NUR ---
PT REMOVED RIGHT WRIST IV EARLIER IN THE SHIFT. . PT HAS AN IV TO THE LAC. PT IS IMPULSIVE AND WAS PULLING ON IV LINE AND WRAPPED THE LINE AROUND WRIST. PT CONT TO ATTEMPT TO CRAWL OUT OF BED. RN CONT. TO REDIRECT PT. PT CURRENT CIWA SCORE IS 16. MEDICATIONS ADMINISTERED PRESCRIBED.
--- NOTE | 2021-05-09 05:59 | NUR ---
PT CONTINUES TO REMOVE BLANKETS WRAPPED AROUND BED RAIL FOR SEIZURE PRECAUTIONS.
[2021-05-09 07:33] VITALS: BP 150/102
--- NOTE | 2021-05-09 10:13 | EKG ---
[place] [address] ELECTROCARDIOGRAM REPORT Name: CAL GUERIN Room: [place] [address] ADM IN .R.#: [id number] Admission: 05/08/21 Attend Phys: Zack Escobar Discharge: Date of : 72 Date of Service: 05/08/21 1509 Report #: [id number] THIS REPORT FOR: //name// [facility] ED Test Date: 2021-05-08 Test Time: 15:09:48 Pat Name: CAL GUERIN Department: Room: [place] [address] Gender: M Vice President Quality Assurance: ANN : 1970 Requested By: Joaquin Reza Order Number: [id number] Valentine MD: Nicola Nunez Measurements Intervals [place] Rate: 103 P: 68 ME: 48 QRS: -33 QRSD: 79 T: -3 QT: 325 QTc: 426 Interpretive Statements Sinus tachycardia Left axis deviation Abnormal R-wave progression, early transition Borderline T abnormalities, inferior leads Artifact in lead(s) I,II,aVR,aVL,V1 Compared to ECG 07/06/2019 07:57:55 Sinus rhythm no longer present Electronically Signed On 05-09-2021 10:12:56 CDT by Nicola Nunez [email or web address] <ELECTRONICALLY SIGNED> By: Nicola Nunez MD, [facility] 05/09/21 1012 1509 1509 Nicola Nunez MD, [facility] /EPI
[2021-05-09 12:48] VITALS: BP 114/73
[2021-05-09 13:14] LABS: ALBUMIN 3.7 g/dL (3.4-5.0); DIRECT BILIRUBIN 0.3 mg/dL (<0.1-0.3); TOTAL BILIRUBIN 1.2 mg/dL (<0.1-1.0); TOTAL PROTEIN 6.5 g/dL (6.4-8.2)
--- NOTE | 2021-05-09 13:52 | NUR ---
I SPOKE WITH THE PATIENT'S SISTER TODAY AND GAVE AN UPDATE. HOME MEDS WERE DISCUSSED WITH THE PHYSICIAN. CIWA IS KEPT UP HOURLY. VITALS ARE MONITORED. PATIENT ASSESSMENTS ARE CHARTED.
[2021-05-09 16:00] VITALS: BP 114/73
--- NOTE | 2021-05-09 18:38 | NUR ---
PATIENT IS A FEEDER. HE NEEDS ASSISTANCE HOLDING UTENSILS AND DRINKS.
[2021-05-09 20:00] VITALS: BP 155/101
--- NOTE | 2021-05-09 22:30 | NUR ---
PT REQUIRES SITTER AT THIS TIME DUE TO PULLING OFF CORDS, ATTEMPTING TO PULL OUT LINES AND CLIMBING OUT OF BED.
--- NOTE | 2021-05-09 23:28 | NUR ---
PT CONTINUES TO PULL OFF MONITOR, PULL AT IV, IV IS NOW NOT WORKING PROPERLY. ATTEMPTS TO PUT IN A NEW IV ARE UNSUCCESSFUL. PT CONTINUES TO REQUIRE LORAZEPAM PRN FOR CIWA PROTOCOL. CIWA IS CURRENTLY 23. PAGE OUT TO HOSPITALIST.
[2021-05-10] VITALS: BP 127/94; BP 156/101
[2021-05-10 04:00] VITALS: BP 146/96
--- NOTE | 2021-05-10 06:10 | NUR ---
PT HAS BEEN INCONTINENT MULTIPLE TIMES THROUGH THIS SHIFT. BED CHANGED EACH TIME, PT CONTINUES TO PULL OFF MONITOR. NEW MONITOR APPLIED EACH TIME. SITTER AT BEDSIDE FOR PATIENT SAFETY. PT CIWA SCORE CURRENTLY 23, MEDICATIONS ADMINISTERED PER PROTOCOL. WILL CONTINUE TO MONITOR.
[2021-05-10 07:35] LABS: HIV-1/HIV-2 ANTIBODY Non Reactive (Non Reactive)
[2021-05-10 08:00] VITALS: BP 172/95
[2021-05-10 12:00] VITALS: BP 156/104
--- NOTE | 2021-05-10 12:57 | NUR ---
CALLED DR NEUMANN TO NOTIFY HIM OF PT STATUS AT THIS TIME IN REGARDS TO ATIVAN ADMINISTRATION AND HIGH CIWA 39 SCORE, PT AGITATION REGARDLESS OF MEDICATION. DR NEUMANN STATES WILL BE REEVALUATING PT IN ER; VERBALIZED UNDERSTANDING
[2021-05-10 16:00] VITALS: BP 143/97
--- NOTE | 2021-05-10 17:32 | NUR ---
TREATMENT OF ETOH WITHDRAWL R/T CIWA ASSESSMENT REFER TO DOCUMENTATION
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
[2021-05-10 20:00] VITALS: BP 128/90
[2021-05-11] VITALS (7 sets, daily range): BP systolic 127–142; BP diastolic 89–96
--- NOTE | 2021-05-11 16:11 | NUR ---
CM attempted to assess, Pt out of it, will re-attempt tomorrow
--- NOTE | 2021-05-11 19:05 | NUR ---
PT ADMITTED TO UNIT. RATHER WITHDRAWN, BUT ANSWERS QUESTIONS APPROPRIATELY. SHUFFLING GATE. STUMBLED INTO SINK WHEN AMBULATING TO BATHROOM. PSORIASIS OVER MOST SURFACES. STATES THAT HE WOULD LIKE TO ACCESS MORE RESOURCES FOR ALCOHOL TREATMENT.
[2021-05-12 03:13] VITALS: BP 125/93
--- NOTE | 2021-05-12 04:24 | NUR ---
PT A&O X 4. ON RA. MEDS GIVEN ORDERED. NO C/O PAIN, UP TO BR WITH SBA. IVF INFUISING. PT SLEPT ON AND OFF. CALL LIGHT WITHIN REACH. WILL CONTINUE TO MONITOR.
[2021-05-12 06:01] VITALS: BP 122/82
[2021-05-12 08:00] VITALS: BP 138/99
[2021-05-12 12:00] VITALS: BP 126/88
--- NOTE | 2021-05-12 13:53 | NUR ---
Pt is A&O. Resides at home alone. Independent. No DME. No hx of HH or SNF. ETOH hx, CM offered community resources, Pt stated "I just want to get out of here so that I can return to work." Goal home at ar.
[2021-05-12 16:00] VITALS: BP 132/93
--- NOTE | 2021-05-12 18:25 | NUR ---
Assumed care at 0700. Pt is alert and oriented. Assessment done and charted. Pt was on scheduled ativan for CIWA. Pt's CIWA has been between 1-2. Pt had been pleasant all day. Pt had uneventful day. Will continue plan of care.
[2021-05-12 19:45] VITALS: BP 143/93
[2021-05-13 01:10] VITALS: BP 126/89
[2021-05-13 03:56] LABS: HEMATOCRIT 39.4 % (42.0-52.0); HEMOGLOBIN 13.4 gm/dL (14.0-18.0); MCV 102.9 fL (80.0-100.0); MPV 8.9 fl. (7.2-11.1); RBC 3.83 mil/uL (4.50-6.00); RDW-CV 14.2 % (10.5-14.5); WBC 4.5 thou/uL (4.0-11.0)
[2021-05-13 04:09] LABS: CALCIUM 9.5 mg/dL (8.5-10.1); CREATININE 0.8 mg/dL (0.6-1.3); MAGNESIUM 1.6 mg/dL (1.8-2.4); POTASSIUM 3.6 mmol/L (3.5-5.1)
--- NOTE | 2021-05-13 04:26 | NUR ---
PT A&O X 4. MEDS GIVEN ORDERED. C/O PAIN IN IV SITE, DRESSING REDONE. UP WITH SBA. CALL LIGHT WITHIN REACH. WILL CONTINUE TO MONITOR.
[2021-05-13 05:41] VITALS: BP 128/82
[2021-05-13] MEDS ORDERED: CIPROFLOXIN HC2.5 M1 OPHTHALMIC (07:33)
[2021-05-13 09:16] VITALS: BP 134/91
[2021-05-13 10:24] VITALS: BP 134/91
--- NOTE | 2021-05-13 11:58 | NUR ---
Assumed care at 0700. Pt is alert and oriented. Pt's CIWA has been zero. Assessment done and charted. Pt discharged at 1145am. IV was taken out and patient took his belonging with him. Pt requested to go back work on 05/23/21.
== END 2021-05-13 11:45 | disposition home or self-care (01) | DRG 896 ==
LOC: M.ERS 14:58 → M.TBA-ER 16:33 → M.2W 05-11 15:50
PROVIDERS: Internal Medicine; Nurse Practitioner Family; ADMIT Internal Medicine; ATTEND Internal Medicine
DX: F10.230 Alcohol dependence with withdrawal, uncomplicated (principal); G93.41 Metabolic encephalopathy; F10.251 Alcohol dependence with alcohol-induced psychotic disorder with hallucinations; F41.9 Anxiety disorder, unspecified; H10.33 Unspecified acute conjunctivitis, bilateral; I10 Essential (primary) hypertension; E80.6 Other disorders of bilirubin metabolism; F04 Amnestic disorder due to known physiological condition; E83.42 Hypomagnesemia; F32.9 Major depressive disorder, single episode, unspecified; I48.91 Unspecified atrial fibrillation; L40.9 Psoriasis, unspecified; Z20.822 Contact with and (suspected) exposure to COVID-19; Z79.899 Other long term (current) drug therapy; Z91.09 Other allergy status, other than to drugs and biological substances